=== PATIENT | female | born 1995 | race African-American/Black ===

== ENCOUNTER 2017-04-01 16:01 | Emergency (ER) | payer SELFPAY ==
[2017-04-01 16:26] VITALS: BP 128/79; PULSE 84; TEMP 98.1; BMI 27.4
--- NOTE | 2017-04-01 16:26 | PDOC ---
Rapid Medical Evaluation Time Seen by Provider: 04/01/17 16:23 Medical Evaluation: Allergies Allergy/AdvReac Type Severity Reaction Status Date / Time No Known Allergies Allergy Verified 12/22/12 02:23 04/01/17 16:23 Pt presents with complaint of : cough, congested x 3 days , felt warm this am, hx asthma On brief exam:DAMEON AVELAR I have ordered the following: pt requesting hiv testing, ordered Pt will go to the Emergency Dept for further workup Discharge Disposition - Diagnosis Cough - Referrals - Patient Instructions - Post Discharge Activity
[2017-04-01 18:11] LABS: HIV 1 & 2 AB NEGATIVE; HIV 1 AGp24 NEGATIVE
--- NOTE | 2017-04-01 19:03 | PDOC ---
History of Present Illness - General Chief Complaint: Cold Symptoms Stated Complaint: Congestion, cough Time Seen by Provider: 04/01/17 16:23 History Source: Patient Exam Limitations: No Limitations - History of Present Illness Initial Comments: 04/01/17 19:22 My Chief Complaint: Moist cough, subjective fever, left upper back discomfort and cloudy urine with foul-smelling vaginal discharge History of present illness: Patient is a 22-year-old female with a history of asthma here today complaining of a moist cough that hurts her chest when she is coughing and tightness when she breathed outward. Patient has had these symptoms since 03/29/2017. Patient denies any wheezing. Or shortness of breath. Patient thought she had a fever this morning woke up sweating. Patient also complaining of left upper back discomfort. Patient also complaining of having cloudy urine and a white liquidy like foul-smelling vaginal discharge since last week. Patient is sexually active with a female however they share a sex toy vaginally. Pt. denies any urinary symptoms, nausea or vomiting or flank pain. Timing/Duration: intermittent (moist cough, chest discomfort with expiration,) Associated Symptoms: reports: cough (moist ), other (neck and upper back pain, cloudy urine, vaginal grayish thin fowl smelling ') Past History - Past Medical History Allergies/Adverse Reactions: Allergies Allergy/AdvReac Type Severity Reaction Status Date / Time No Known Allergies Allergy Verified 12/22/12 02:23 Home Medications: Ambulatory Orders Guaifenesin Dm [Mucinex Dm -] 1 tab PO BID PRN #10 tab.er.12h MDD 2 04/01/17 Sulfamethoxazole/Trimethoprim [Bactrim Ds -] 1 tab PO BID #14 tablet MDD 2 04/01 Asthma: Yes (last attack 08/13) Cancer: No Cardiac Disorders: No COPD: No Diabetes: No HTN: No Seizures: No Thyroid Disease: No - Suicide/Smoking/Psychosocial Hx Smoking Status: No Smoking History: Never smoked Have you smoked in the past 12 months: No Number of Cigarettes Smoked Daily: 0 Information on smoking cessation initiated: Yes Hx Alcohol Use: No Drug/Substance Use Hx: No Substance Use Type: None Hx Substance Use Treatment: No Review of Systems - Review of Systems Able to Perform ROS?: Yes Constitutional: Yes: Fever (subjectice) HEENTM: No: Symptoms Reported Respiratory: Yes: Cough (moist ). No: Shortness of Breath, SOB with Exertion, SOB at Rest, Stridor, Wheezing, Productive cough Cardiac (ROS): Yes: Chest Pain (when coughing only ) ABD/GI: No: Symptoms Reported : Yes: Discharge (thin white discharge fowl smelling since last week), Other ( cloudy urine ). No: Burning, Dysuria, Frequency, Flank Pain, Hematuria, Incontinence, Pain, Urgency Musculoskeletal: Yes: Back Pain (upper back ) Integumentary: No: Symptoms Reported *Physical Exam - Vital Signs Last Vital Signs Temp Pulse Resp BP Pulse Ox 98.1 F 84 18 128/79 100 04/01/17 16:24 04/01/17 16:24 04/01/17 16:24 04/01/17 16:24 04/01/17 16:24 - Physical Exam General Appearance: Yes: Appropriately Dressed HEENT: positive: Normal ENT Inspection Neck: negative: Lymphadenopathy (R), Lymphadenopathy (L), Rigidity, Tender lateral, Tender midline Respiratory/Chest: positive: Lungs Clear, Normal Breath Sounds. negative: Chest Tender, Respiratory Distress Cardiovascular: positive: Regular Rhythm, Regular Rate, S1, S2 Female Pelvic Exam: positive: normal external exam, cervical os closed, normal adnexa, normal size ovaries, discharge (thin white to grayish no gross fowl odor ). negative: CMT Gastrointestinal/Abdominal: positive: Normal Bowel Sounds, Soft. negative: Tender, Organomegaly, Distended, Guarding, Rebound, Tenderness, Hepatomegaly, Spleenomegaly Musculoskeletal: positive: Normal Inspection. negative: CVA Tenderness, CVA Tenderness (R), CVA Tenderness (L), Vertebral Tenderness Extremity: positive: Other (muscle tenderness left upper back ) Integumentary: positive: Normal Color Neurologic: positive: Alert, Normal Response, Responsive Medical Decision Making - Medical Decision Making 04/01/17 19:27 Patient is a 22-year-old female with a history of asthma here today complaining of a moist cough that hurts her chest when she is coughing and tightness when she breathed outward. Patient has had these symptoms since 03/29/2017. Patient denies any wheezing. Or shortness of breath. Patient thought she had a fever this morning woke up sweating. Patient also complaining of left upper back discomfort. Patient also complaining of having cloudy urine and a white liquidy like foul-smelling vaginal discharge since last week. Patient is sexually active with a female however they share a sex toy vaginally. Pt. denies any urinary symptoms, nausea or vomiting or flank pain. Pt. never hospitalized due to her asthma. cough r/o STD left upper back pain unprotected sex cystitis PLAN: genital culture u/a urine c & S chlamydia/GC amplification doneb now Mucinex DM 1 tab q 12 hr prn cough Bactrim DS 1 tab bid for 7 days will treat both UTI and bronchitis azithromcyin 1000mg po no rocephin 250 mg IM now 04/01/17 19:28 04/01/17 21:43 Laboratory Tests 04/01/17 04/01/17 04/01/17 16:35 20:12 20:12 Urine Color Yellow Urine Appearance Slcloudy Urine pH 6.0 Ur Specific [place] 1.029 Urine Protein Negative Urine Glucose (UA) Negative Urine Ketones Negative Urine Blood 1+ H Urine Nitrite Negative Urine Bilirubin Negative Urine Urobilinogen Negative Urine WBC (Auto) 80 Urine RBC (Auto) 45 Ur Epithelial Cells Few Urine HCG, Qual Negative HIV 1&2 Antibody Screen Negative HIV P24 Antigen Negative 04/03/17 19:47 *DC/Admit/Observation/Transfer Diagnosis at time of Disposition: Cough, Bronchitis, Cystitis, Unprotected sex, Acute upper back pain - Discharge Dispostion Disposition: HOME Condition at time of disposition: Stable - Prescriptions Prescriptions: Guaifenesin Dm [Mucinex Dm -] 1 tab PO BID PRN #10 tab.er.12h MDD 2 PRN Reason: Cough Sulfamethoxazole/Trimethoprim [Bactrim Ds -] 1 tab PO BID #14 tablet MDD 2 - Referrals Referrals: Leisa Chapin MD [Primary Care Provider] - - Patient Instructions Additional Instructions: Follow-up with your primary care provider within the next few days Return to emergency room if symptoms worsen any difficulty breathing any fever or nausea vomiting or any other symptoms develop Follow-up with your nylon mender as soon as possible Take ibuprofen as needed as directed by accreditation coordinator for pain Patient voiced understanding of discharge instructions and all questions were answered - Post Discharge Activity
[2017-04-01] MEDS ORDERED: ALBUTEROL SO4 2.5/IPRATROPIUM 0.5 INH SOL 3 ML VIAL.NEB. NEB ONE (19:09)
[2017-04-01 20:38] LABS: URINE APPEARANCE SLCLOUDY; URINE BILIRUBIN NEGATIVE (NEGATIVE); URINE BLOOD 1+ (NEGATIVE); URINE COLOR YELLOW; URINE GLUCOSE (UA) NEGATIVE (NEGATIVE); URINE KETONE NEGATIVE (NEGATIVE); URINE NITRITE NEGATIVE (NEGATIVE); URINE PROTEIN NEGATIVE (NEGATIVE); URINE UROBILINOGEN NEGATIVE mg/dL (0.2-1.0)
[2017-04-01 20:50] LABS: URINE MUCUS RARE; URINE RBC 45 /hpf (0-3); URINE WBC 80 /hpf (3-5)
[2017-04-01] MEDS ORDERED: AZITHROMYCIN 500 MG TABLET PO ONE (21:41)
[2017-04-01] MEDS ORDERED: AZITHROMYCIN 500 MG TABLET ONE (21:46)
[2017-04-01] MEDS ORDERED: SULFAMETHOXAZOLE/TRIMETHOPRIM 800MG/160MG D.S. TABLET PO ONE (21:47)
[2017-04-01] MEDS ORDERED: SULFAMETHOXAZOLE/TRIMETHOPRIM 800MG/160MG D.S. TABLET ONE (21:55)
[2017-04-02 11:42] LABS: URINE LEUK ESTERASE 2+ (NEGATIVE)
== END 2017-04-01 21:58 | disposition home or self-care (01) ==
LOC: JERFT 16:01
CPT/HCPCS: 36415; 81003; 81015; 84703; 87070; 87086; 87186; 87205; 87389; 87491; 87591; 99281-25

== ENCOUNTER 2017-07-29 01:03 | Emergency (ER) | payer OTHER ==
[2017-07-29 01:21] VITALS: BP 128/82; PULSE 75; TEMP 98.5
--- NOTE | 2017-07-29 03:14 | PDOC ---
History of Present Illness - General Chief Complaint: Ingrown toenail Stated Complaint: TOE PROBLEM Time Seen by Provider: 07/29/17 01:57 History Source: Patient - History of Present Illness Initial Comments: 07/29/17 03:10 22 year old female with b/l great toe swelling at the nail bed for several days now with pain to the toe. denies fever/chills, streaking, Past History - Past Medical History Allergies/Adverse Reactions: Allergies Allergy/AdvReac Type Severity Reaction Status Date / Time No Known Allergies Allergy Verified 07/29/17 01:19 Home Medications: Ambulatory Orders Guaifenesin Dm [Mucinex Dm -] 1 tab PO BID PRN #10 tab.er.12h MDD 2 04/01/17 Sulfamethoxazole/Trimethoprim [Bactrim Ds -] 1 tab PO BID #20 tablet 07/29/17 Asthma: Yes (last attack 08/13) Cancer: No Cardiac Disorders: No COPD: No Diabetes: No HTN: No Seizures: No Thyroid Disease: No - Suicide/Smoking/Psychosocial Hx Smoking Status: No Smoking History: Never smoked Have you smoked in the past 12 months: No Number of Cigarettes Smoked Daily: 0 Information on smoking cessation initiated: No Hx Alcohol Use: No Drug/Substance Use Hx: No Substance Use Type: None Hx Substance Use Treatment: No *Physical Exam - Vital Signs Last Vital Signs Temp Pulse Resp BP Pulse Ox 98.5 F 75 20 128/82 98 07/29/17 01:20 07/29/17 01:20 07/29/17 01:20 07/29/17 01:20 07/29/17 01:20 - Physical Exam General Appearance: Yes: Appropriately Dressed Extremity: positive: Normal Capillary Refill, Normal Inspection, Other (b/l great toe with paronychia and swelling with toe erythema proximal to nail bed) *DC/Admit/Observation/Transfer Diagnosis at time of Disposition: Paronychia Cellulitis of toe Qualifiers: Laterality: unspecified laterality Qualified Code(s): L03.039 - Cellulitis of unspecified toe - Discharge Dispostion Disposition: HOME - Prescriptions Prescriptions: Sulfamethoxazole/Trimethoprim [Bactrim Ds -] 1 tab PO BID #20 tablet - Referrals Referrals: Roel Dee [Primary Care Provider] - Carlos Serra MD [Staff Physician] - Robbie Appiah MD [Staff Physician] - Goyo Mcleod MD [Staff Physician] - - Patient Instructions Printed Discharge Instructions: DI for Wound Infection Additional Instructions: continue soaking both feet every 4 hours take bactrim as prescribed. follow up with a racehorse trainer as soon as possible. return to the ER for worsening symptoms. - Post Discharge Activity Forms/Work/School Notes: Back to Work
== END 2017-07-29 03:16 | disposition home or self-care (01) ==
LOC: JER 01:03
DX: L03.032 Cellulitis of left toe (principal); L03.031 Cellulitis of right toe
CPT/HCPCS: 99282-25

== ENCOUNTER 2019-02-02 20:02 | Emergency (ER) | payer OTHER ==
[2019-02-02 20:08] VITALS: BP 134/71; PULSE 96; TEMP 98.2; BMI 37.8
--- NOTE | 2019-02-02 20:10 | PDOC ---
Rapid Medical Evaluation Chief Complaint: Pain Time Seen by Provider: 02/02/19 20:04 Medical Evaluation: Allergies Allergy/AdvReac Type Severity Reaction Status Date / Time No Known Allergies Allergy Verified 07/29/17 01:19 02/02/19 20:05 I have performed a brief in-person evaluation of this patient. The patient presents with a chief complaint of: left arm x 2 years, states progressively worsen past 3 weeks. No fevers, no trauma/ MVC/ no exercise changes. no treatments for pain Pertinent physical exam findings: no reproduced pain with palp, unable to lift paST 90degrees I have ordered the following: nothing The patient will proceed to the ED for further evaluation. Discharge Disposition - Diagnosis Chronic pain Qualifiers: Chronic pain type: other chronic pain Qualified Code(s): G89.29 - Other chronic pain - Discharge Dispostion Condition at time of disposition: Stable - Referrals - Patient Instructions - Post Discharge Activity
[2019-02-02] MEDS ORDERED: IBUPROFEN 600 MG TABLET (FP) PO ONE ×2 (20:26→20:29)
--- NOTE | 2019-02-02 20:27 | PDOC ---
History of Present Illness - General Chief Complaint: Pain Stated Complaint: L ARM PAIN Time Seen by Provider: 02/02/19 20:04 History Source: Patient - History of Present Illness Initial Comments: 02/02/19 20:38 Chief complaint: Left shoulder pain Patient 23-year-old female, no medical problems, not on contraceptive medication was complaining of left shoulder pain for 2 years. Patient states is gotten worse later. No pain when she does not move it but has pain when she uses it. No fever, chest pain, shortness of breath, numbness. Patient has not taking medicine for or has it been evaluated prior. GENERAL/CONSTITUTIONAL: No fever, weakness. dizziness HEAD, EYES, EARS, NOSE AND THROAT: No change in vision. No ear pain or discharge. No sore throat. CARDIOVASCULAR: No chest pain RESPIRATORY: No shortness of breath or cough GASTROINTESTINAL: No pain, nausea, vomiting, diarrhea or constipation GENITOURINARY: No dysuria MUSCULOSKELETAL: + Left shoulder, no neck or back pain SKIN: No rash NEUROLOGIC: No headache, vertigo, loss of consciousness, or loss of sensation. GENERAL: The patient is awake, alert, and fully oriented, in no acute distress. HEAD: Normal with no signs of trauma. EYES: Pupils equal, round and reactive to light, sclera anicteric, conjunctiva clear. ENT: pharynx: no erythema, no exudate, uvula midline NECK: supple CHEST: clear, nontender, rr ABD: soft, nontender BACK: no tenderness or signs of injury EXTREMITIES: Left shoulder with no signs of infection, no deformity, no swelling , has mild tenderness generally. Able to passively lift to 90 degrees and hold steady. Rest of extremity without any positive exams, neurovascular intact. Rest of extremities, normal range of motion, no edema. NEUROLOGICAL: Normal speech, normal gait. SKIN: Warm, Dry Past History - Past Medical History Allergies/Adverse Reactions: Allergies Allergy/AdvReac Type Severity Reaction Status Date / Time No Known Allergies Allergy Verified 07/29/17 01:19 Home Medications: Ambulatory Orders Guaifenesin Dm [Mucinex Dm -] 1 tab PO BID PRN #10 tab.er.12h MDD 2 04/01/17 Sulfamethoxazole/Trimethoprim [Bactrim Ds -] 1 tab PO BID #20 tablet 07/29/17 Asthma: Yes (last attack 08/13) Cancer: No Cardiac Disorders: No COPD: No Diabetes: No HTN: No Seizures: No Thyroid Disease: No - Psycho Social/Smoking Cessation Hx Smoking Status: No Smoking History: Never smoked Have you smoked in the past 12 months: No Number of Cigarettes Smoked Daily: 0 Hx Alcohol Use: No Drug/Substance Use Hx: No Substance Use Type: None Hx Substance Use Treatment: No *Physical Exam - Vital Signs Last Vital Signs Temp Pulse Resp BP Pulse Ox 98.2 F 96 H 19 134/71 100 02/02/19 20:04 02/02/19 20:04 02/02/19 20:04 02/02/19 20:04 02/02/19 20:04 Medical Decision Making - Medical Decision Making 02/02/19 20:39 Healthy 23-year-old female, with ongoing issue with left shoulder pain, no specific injury. No chest pain, shortness of breath, fever and no use of contraceptives. Patient only has pain when she tries to use it. Patient will get an x-ray to rule out underlying pathology. X-ray does not show any acute issue Discussed issues, findings, results, applicable medications and treatments and follow-up. All these were understood and all questions were answered Discharge - Discharge Information Problems reviewed: Yes Clinical Impression/Diagnosis: Shoulder pain, left Qualifiers: Chronicity: chronic Qualified Code(s): M25.512 - Pain in left shoulder Condition: Stable Disposition: HOME - Admission No - Follow up/Referral Referrals: Luis Owusu MD [Staff Physician] - - Patient Discharge Instructions Patient Printed Discharge Instructions: DI for Shoulder Pain Additional Instructions: You can warm compresses or heating pad Motrin 600 mg every 6 hours for pain. Call the orthopedist tomorrow - Post Discharge Activity
== END 2019-02-02 20:46 | disposition home or self-care (01) ==
LOC: JERFT 20:02
DX: M25.512 Pain in left shoulder (principal); G89.29 Other chronic pain; Z87.09 Personal history of other diseases of the respiratory system
CPT/HCPCS: 73030-TC-LT-FY; 99281-25